=== PATIENT | female | born 1985 | race Caucasian/White ===

== ENCOUNTER 2021-05-25 09:19 | Emergency (ER) | payer MEDICAID, OTHER ==
[~2021-05-25] VITALS: Ht 167.6 cm; Wt 108.9 kg
[2021-05-25 09:38] VITALS: BP 135/71
[2021-05-25] MEDS ORDERED: BENZOCAINE (DENTAL)20% 1 SPR SPRAY MT ONE (09:45)
[2021-05-25] MEDS ORDERED: BENZ20SO3 MT (09:50)
[2021-05-25] MEDS ORDERED: KETOROLAC TROMETH 60MG/2ML VIAL IM ONE (10:00)
== END 2021-05-25 10:11 | disposition home or self-care (01) ==
LOC: ER 09:19
DX: T85.848A Pain due to other internal prosthetic devices, implants and grafts, initial encounter (principal); K08.89 Other specified disorders of teeth and supporting structures; F17.210 Nicotine dependence, cigarettes, uncomplicated; Z79.899 Other long term (current) drug therapy
CPT/HCPCS: 96372; 99283; J1885

== ENCOUNTER 2021-06-20 17:48 | Emergency (ER) | payer OTHER ==
[~2021-06-20] VITALS: Ht 167.6 cm; Wt 108.9 kg
[~2021-06-20 17:48] MED LIST: BENZ20SO3 MT
[2021-06-20 19:41] VITALS: BP 129/78
== END 2021-06-20 19:54 | disposition home or self-care (01) ==
LOC: ER 17:48
DX: S86.912A Strain of unspecified muscle(s) and tendon(s) at lower leg level, left leg, initial encounter (principal); F17.210 Nicotine dependence, cigarettes, uncomplicated; X58.XXXA Exposure to other specified factors, initial encounter; Y93.89 Activity, other specified; Y92.89 Other specified places as the place of occurrence of the external cause; Y99.8 Other external cause status